=== PATIENT | male | born 1995 ===

== ENCOUNTER 2020-03-21 21:22 | Emergency (ER) | payer SELFPAY ==
[~2020-03-21] VITALS: Ht 182.9 cm; Wt 68.2 kg
[2020-03-21 21:26] VITALS: BP 108/56
--- NOTE | 2020-03-21 21:46 | NUR ---
pt while breaking up a dog fight stated that 1 of the dogs bite his left hand, had pt wash hands with soap and water in the sink, vss, no distress
== END 2020-03-21 22:09 | disposition home or self-care (01) ==
LOC: ED 21:52
DX: S61.452A Open bite of left hand, initial encounter (principal); S61.451A Open bite of right hand, initial encounter; W54.0XXA Bitten by dog, initial encounter; Y93.89 Activity, other specified; Y92.098 Other place in other non-institutional residence as the place of occurrence of the external cause; Y99.8 Other external cause status
CPT/HCPCS: 99283